=== PATIENT | female | born 1985 | race Caucasian/White ===

== ENCOUNTER 2018-01-08 20:50 | Emergency (ER) | payer OTHER ==
[~2018-01-08] VITALS: Ht 162.6 cm; Wt 49.9 kg
[2018-01-08] MEDS ORDERED: ALBUTEROL2.5 MG/0.1 INH (21:05)
[2018-01-08] MEDS ORDERED: MEDROLDOSEPACK PO (21:13)
[2018-01-08 21:48] VITALS: BP 101/67
== END 2018-01-08 21:49 | disposition home or self-care (01) ==
LOC: M.ERS 20:50
DX: L25.9 Unspecified contact dermatitis, unspecified cause (principal); Z88.5 Allergy status to narcotic agent